=== PATIENT | female | born 1975 | race African-American/Black ===

== ENCOUNTER 2017-06-10 10:26 | Emergency (ER) | payer SELFPAY ==
[~2017-06-10] VITALS: Ht 170.2 cm; Wt 100.0 kg
[2017-06-10 10:37] VITALS: BP 152/107
== END 2017-06-10 12:20 | disposition home or self-care (01) ==
LOC: ER 10:36
DX: H81.10 Benign paroxysmal vertigo, unspecified ear (principal); F17.210 Nicotine dependence, cigarettes, uncomplicated; Z90.49 Acquired absence of other specified parts of digestive tract
CPT/HCPCS: 99282; J7030

== ENCOUNTER 2024-03-13 20:03 | Emergency (ER) | payer SELFPAY ==
[~2024-03-13] VITALS: Ht 167.6 cm; Wt 91.0 kg
[2024-03-13 20:08] VITALS: O2SAT 100
[2024-03-13 21:00] VITALS: BP 121/85; PULSE 74; RESP 16; TEMP 36.66960; O2SAT 99
[2024-03-13] MEDS: BACITRACIN ZINC OINT UDPKT TOP ONE (21:00)
[2024-03-13] MEDS: IBUPROFEN 600MG TABLET PO ONE (21:00)
[2024-03-13] MEDS ORDERED: BO1 TP (21:13)
== END 2024-03-13 22:24 ==
LOC: ER 20:03
DX: T22.212A Burn of second degree of left forearm, initial encounter (principal); T79.9XXA Unspecified early complication of trauma, initial encounter; X08.8XXA Exposure to other specified smoke, fire and flames, initial encounter; Y93.89 Activity, other specified; Y92.89 Other specified places as the place of occurrence of the external cause; Y99.8 Other external cause status
CPT/HCPCS: 99282; Z7610 ×2